=== PATIENT | female | born 1990 | race African-American/Black ===

== ENCOUNTER 2019-11-13 15:15 | Emergency (ER) | payer SELFPAY ==
[2019-11-13 15:50] VITALS: TEMP 102
[2019-11-13] MEDS ORDERED: ACETAMINOPHEN 500 MG TAB PO ONE (15:54)
--- NOTE | 2019-11-13 16:18 | ED.PDOC ---
History of Present Illness - General Chief Complaint: Respiratory Problem Stated Complaint: cough, fever Time Seen by Provider: 11/13/19 15:53 Source: patient - History of Present Illness Comments: 29-year-old female presents to the emergency department complaining of fever, cough, congestion and myalgias onset 3 days ago. She reports that she is currently with a last menstrual period of approximately 8-9 weeks ago and this is her first . She has not seen anybody for the yet but denies any abdominal pain or vaginal bleeding. She has been around multiple contacts that were sent with similar respiratory symptoms recently but is not aware of anybody that was specifically diagnosed with flu. Her symptoms are currently moderate in severity and nothing she does seems to make them significantly better or worse. Allergies/Adverse Reactions: Allergies Penicillins Allergy (Verified 08/18/15 10:22) Home Medications: Ambulatory Orders Cephalexin Monohydrate [Keflex] 500 mg PO TID #30 cap 11/13/19 Review of Systems - Review of Systems Constitutional: States: chills, fever, weakness EENTM: States: nose congestion, throat pain Respiratory: States: cough. Denies: short of breath, wheezing Cardiology: Denies: chest pain, palpitations Gastrointestinal/Abdominal: Denies: abdominal pain, diarrhea, nausea, vomiting Genitourinary: States: other - no vag bleeding. Denies: dysuria, hematuria Musculoskeletal: States: muscle pain. Denies: joint pain Skin: Denies: lesions, rash Neurological: Denies: headache, weakness Past Medical History (General) - Patient Medical History Hx of COPD: No Hx Congestive Heart Failure: No Hx Diabetes: No Hx Gastroesophageal Reflux: No Surgical History: no surgical history - Vaccination History Hx Influenza Vaccination: No - unknown - Social History Hx Tobacco Use: Yes Hx Substance Use Treatment: Yes - Female History Patient is a Female of Child Bearing Age (10 -59 yrs old): Yes Patient : Yes Family Medical History - Family History Mother Family History: Unknown Living Status: Still Living Hx Family;Other: COPD Physical Exam - Physical Exam General Appearance: Alert, Well Developed, Well Nourished Eye Exam: bilateral normal ENT Exam: nasal congestion, nasal drainage Neck: full range of motion, supple, normal inspection Respiratory: lungs clear, normal breath sounds, no respiratory distress, no accessory muscle use Cardiovascular/Chest: normal peripheral pulses, tachycardia Gastrointestinal/Abdominal: normal bowel sounds, non tender, soft Extremity: non-tender, normal inspection Neurologic: no motor/sensory deficits, alert, normal mood/affect, oriented x 3 Skin Exam: normal color, warm/dry Comments: Vital Signs - 24 hr 11/13/19 15:39 Temperature 102.0 F H Pulse Rate [ 106 H left brachial] Respiratory 20 Rate Blood Pressure 121/81 [left brachial] O2 Sat by Pulse 98 Oximetry Progress - Progress Progress: 11/13/19 16:19 Patient recheck: All lab and imaging results discussed with the patient along the plan for discharge. She is side as the 48 hour window to start Tamiflu so she has been encouraged to continue [id number] Tylenol and frequent fluids. She will be put on antibiotics for urinary tract infection and is given the information for Dr. Hill for [facility] [facility] [facility] to follow-up with. She is to return to the emergency department immediately for any worsening of symptoms or other concerns. The patient has voiced understanding and agrees with treatment plan. - Results/Orders Results/Orders: 11/13/19 15:52 Urine Culture Stat Laboratory Results - last 24 hr 11/13/19 11/13/19 15:52 15:54 Urine Color Yellow Urine Appearance Cloudy Urine pH 7.0 Ur Specific [place] 1.025 Urine Protein Negative Urine Glucose (UA) Negative Urine Ketones Negative Urine Blood Trace-intact H Urine Nitrite Negative Urine Bilirubin Negative Urine Urobilinogen 0.2 Ur Leukocyte Esterase Trace H Urine RBC 1-3 Urine WBC 10-20 H Ur Epithelial Cells >50 Amorphous Sediment 2+ Urine Bacteria 3+ H Urine Mucus Small Urine HCG, Qual Positive Influenza A + Influenza B - Departure - Departure Clinical Impression: First trimester , Influenza A UTI (urinary tract infection) Qualifiers: Urinary tract infection type: site unspecified Hematuria presence: without hematuria Qualified Code(s): N39.0 - Urinary tract infection, site not specified Time of Disposition: 16:21 Disposition: Discharge to Home or Self Care Condition: Fair Departure Forms: ED Discharge - Pt. Copy, Patient Portal Self Enrollment Instructions: Urinary Tract Infections in Adults, Flu Referrals: Richi Hill MD [Active Staff] - 1-5 Days [facility] [Provider Group] - 1-5 Days Prescriptions: Cephalexin Monohydrate [Keflex] 500 mg PO TID #30 cap Home Medications: Ambulatory Orders Cephalexin Monohydrate [Keflex] 500 mg PO TID #30 cap 11/13/19 Additional Instructions: Take prescription as directed. Use [id number] Tylenol every 6 hours as needed for fever and body aches. Drink frequent oral fluids. Follow-up with Dr. Murray for [facility] [facility] [facility] and the [facility] for primary care as soon as possible. Return to the emergency department immediately for any significant worsening of symptoms or other concerns.
[2019-11-13 16:23] VITALS: O2SAT 97
[2019-11-13 16:43] VITALS: BP 119/82
== END 2019-11-13 16:35 | disposition home or self-care (01) ==
LOC: ER 15:15
DX: O98.811 Other maternal infectious and parasitic diseases complicating pregnancy, first trimester (principal); J10.1 Influenza due to other identified influenza virus with other respiratory manifestations; O23.41 Unspecified infection of urinary tract in pregnancy, first trimester; Z88.0 Allergy status to penicillin; Z3A.09 9 weeks gestation of pregnancy; Z87.891 Personal history of nicotine dependence